=== PATIENT | male | born 1955 | race Caucasian/White ===

== ENCOUNTER 2023-04-17 06:32 | Day surgery (SDC) | payer BC, SELFPAY ==
[2023-04-17 14:14] VITALS: BMI 25.7
[2023-04-17 14:15] VITALS: BP 109/68; BMI 25.7
[2023-04-17] MEDS: TYLENOL 1000 MG PO (14:20)
[2023-04-17] MEDS: CELEBREX 200 MG PO (14:20)
[2023-04-17 14:56] LABS: Hematocrit 40.9 % (39.0-52.0); Mean Corp Hgb Conc. 31.8 g/dL (33.0-37.0); Mean Corpuscular Volume 84.9 fL (80.0-94.0); Mean Platelet Volume 10.1 fL (7.4-10.4); Platelet Count 289 10^3/uL (130-400); Red Blood Cell Count 4.82 10^6/uL (4.70-6.10); Red Cell Dist. Width 14.3 % (11.5-14.5); White Blood Cell Count 4.6 10^3/uL (4.8-10.8)
[2023-04-17 16:00] VITALS: BP 109/68; BP 121/66
[2023-04-17 16:15] VITALS: BP 120/73
[2023-04-17 16:27] VITALS: BP 122/75
[2023-04-17 16:52] VITALS: BP 120/71
[2023-04-17 17:06] VITALS: BP 121/68
== END 2023-04-17 17:15 | disposition home or self-care (01) ==
LOC: SDS 06:32
PROVIDERS: ATTENDING PHYSICIAN Orthopaedic Surgery
DX: M70.32 Other bursitis of elbow, left elbow (principal)
CPT/HCPCS: 24105; 88304; 88311; 85027; 87070; 87075; 87147; 87176; 87186; 87205; 93005

== ENCOUNTER → 2023-04-28 10:16 | Outpatient (REF) | payer BC, SELFPAY ==
[2023-04-28 10:31] VITALS: BP 122/62; BP_SYST 85
[2023-04-28 11:16] VITALS: BP 120/73; BP_SYST 82
== END ==
LOC: RADI 10:16
PROVIDERS: ATTENDING PHYSICIAN Internal Medicine Infectious Disease; FAMILY PHYSICIAN Family Medicine
DX: M86.132 Other acute osteomyelitis, left radius and ulna (principal); M71.122 Other infective bursitis, left elbow
CPT/HCPCS: 36573; C1751

== ENCOUNTER 2023-04-28 11:22 | Outpatient (RCR) | payer BC, SELFPAY ==
[2023-04-28] MEDS: ANCEF 60 MG IV (11:58)
[2023-04-28 12:01] VITALS: BP 119/67
[2023-04-28 12:15] LABS: % Basophils 1.1 % (0-2); % Eosinophils 3.1 % (0-6); % Immature Granulocytes 0.2 % (0-0.5); % Lymphocytes 19.9 % (20.5-51.1); % Monocytes 8.6 % (1.7-9.3); % Neutrophils 67.1 % (42.2-75.2); Absolute Basophils 0.1 10^3/uL (0-0.2); Absolute Eosinophils 0.2 10^3/uL (0-0.7); Absolute Monocytes 0.5 10^3/uL (0.1-0.6); Absolute Neutrophils 3.5 10^3/uL (1.4-6.5); Hematocrit 38.7 % (39.0-52.0); Hemoglobin 12.5 g/dL (13.0-18.0); Mean Corp Hgb Conc. 32.3 g/dL (33.0-37.0); Mean Corpuscular Hgb 27.7 pg (27.0-31.0); Mean Corpuscular Volume 85.8 fL (80.0-94.0); Mean Platelet Volume 9.2 fL (7.4-10.4); Nucleated Red Blood Cells % 0 % (-); Platelet Count 251 10^3/uL (130-400); Red Blood Cell Count 4.51 10^6/uL (4.70-6.10); Red Cell Dist. Width 14.2 % (11.5-14.5); White Blood Cell Count 5.2 10^3/uL (4.8-10.8)
[2023-04-28 12:33] LABS: ALT (SGPT) 23 U/L (0-50); AST (SGOT) 29 U/L (17-59); Albumin 3.9 g/dl (3.5-5.0); Alkaline Phosphatase 129 U/L (38-126); Blood Urea Nitrogen 22 mg/dl (9-20); Calcium 8.8 mg/dl (8.4-10.2); Carbon Dioxide 27 mmol/L (22-30); Chloride 104 mmol/L (98-107); Glucose 77 mg/dl (70-99); Potassium 4.4 mmol/L (3.5-5.1); Sodium 135 mmol/L (135-145); Total Bilirubin 0.5 mg/dl (0.2-1.3); Total Protein 6.9 g/dl (6.3-8.2); eGFR > 60.00
== END 2023-05-25 23:59 | disposition home or self-care (01) ==
LOC: OID 11:22
PROVIDERS: ATTENDING PHYSICIAN Internal Medicine Infectious Disease; FAMILY PHYSICIAN Family Medicine
DX: M86.132 Other acute osteomyelitis, left radius and ulna (principal)
CPT/HCPCS: 36573; 36591; 80053; 85025; 86140; 96365; C1751